=== PATIENT | female | born 1960 | race African-American/Black ===

== ENCOUNTER → 2021-03-02 | Outpatient (CLI) | payer OTHER ==
[~2021-03-02] MED LIST: FLEXERIL 10 MG10 MG PO; IBUPROFEN600 MG PO
== END ==
LOC: US 08:36
DX: K59.00 Constipation, unspecified (principal); R10.819 Abdominal tenderness, unspecified site; R16.0 Hepatomegaly, not elsewhere classified
CPT/HCPCS: 74019; 76700